=== PATIENT | female | born 1955 | race Caucasian/White ===

== ENCOUNTER → 2024-05-23 06:21 | Day surgery (SDC) | payer MEDICARE, SELFPAY ==
[2024-05-23 10:04] LABS: Glucose - Point of Care 122 mg/dl (70-99)
== END ==
LOC: GI 06:21
PROVIDERS: ATTENDING PHYSICIAN Internal Medicine Gastroenterology
DX: Z12.11 Encounter for screening for malignant neoplasm of colon (principal); D12.2 Benign neoplasm of ascending colon; D12.3 Benign neoplasm of transverse colon; D12.4 Benign neoplasm of descending colon; D12.5 Benign neoplasm of sigmoid colon; Q43.8 Other specified congenital malformations of intestine; K64.8 Other hemorrhoids; K22.70 Barrett's esophagus without dysplasia; K21.9 Gastro-esophageal reflux disease without esophagitis; K31.89 Other diseases of stomach and duodenum; Z86.0109 Personal history of other colon polyps
CPT/HCPCS: 45385; 43239; 88305; 82962; 88342

== ENCOUNTER → 2024-09-14 07:27 | Outpatient (REF) | payer MEDICARE, SELFPAY | LOC: PAVMRI 07:27 | PROVIDERS: ATTENDING PHYSICIAN Family Medicine | DX: M54.16 Radiculopathy, lumbar region (principal) | CPT/HCPCS: 72148 ==

== ENCOUNTER → 2024-09-20 13:38 | Outpatient (REF) | payer MEDICARE, SELFPAY | LOC: WDC 13:38 | PROVIDERS: ATTENDING PHYSICIAN Family Medicine | DX: M81.0 Age-related osteoporosis without current pathological fracture (principal); Z78.0 Asymptomatic menopausal state; Z12.31 Encounter for screening mammogram for malignant neoplasm of breast | CPT/HCPCS: 77063; 77067; 77080 ==